=== PATIENT | female | born 2000 | race Caucasian/White ===

== ENCOUNTER 2023-11-15 10:30 | Outpatient (RCR) | payer OTHER, SELFPAY ==
[2023-11-10 14:01] VITALS: BP 106/66; PULSE 75; RESP 20; TEMP 36.2; BMI 24.2
--- NOTE | 2023-11-10 16:06 | PCM.WC.HP ---
History of Present Illness Date of Service: 11/10/23 Chief Complaint: Burn ulcer lower left lateral back History of Wound: 23 year old female who had a cardiac ablation for SVT on 10/15/23 in [place]. She was told that the grounding wire was not adhered completely during her procedure and she initially developed a blister. The blister turned into a second degree burn. She has been placing antibiotic ointment to the area and covering it with a band aid. She was referred to the wound healing center for further evaluation and treatment. She denies any other health issues besides ADHD and the SVT she has experienced. Today she denies fevers, chills, nausea or vomiting. She comes in for further evaluation of her non healing burn/ulcer. Progress of Wound: Left lower lateral back ulcer is beefy pink in the subcutaneous tissue. It is tender to palpation. Surrounding skin is clear. No clinical evidence of infection. [facility] Home Medications bacitracin zinc 500 unit/gram topical ointment topical BID 11/10/23 [History Last Taken Unknown] fluoxetine 40 mg capsule 40 mg PO 11/10/23 [History Last Taken Unknown] hydroxyzine HCl 10 mg tablet 10 - 20 mg PO PRN PRN anxiety 11/10/23 [History Last Taken Unknown] hydroxyzine HCl 25 mg tablet 25 - 50 mg PO QHS PRN PRN insomnia 11/10/23 [History Last Taken Unknown] methylphenidate HCl 20 mg chewable tablet immed and exten.release 24 hr (QuilliChew ER) 20 mg PO DAILY 11/10/23 [History Last Taken Unknown] methylphenidate HCl 20 mg tablet 20 mg PO DAILY 11/10/23 [History Last Taken Unknown] methylphenidate HCl 30 mg chewable tablet immed and exten.release 24 hr (QuilliChew ER) 30 mg PO 11/10/23 [History Last Taken Unknown] metoprolol succinate 25 mg tablet,extended release 24 hr 25 mg PO DAILY 11/10/23 [History Last Taken Unknown] silver sulfadiazine 1 % topical cream (SSD) applic topical BID 11/10/23 [History Last Taken Unknown] Allergy/AdvReac Type Severity Reaction Status Date / Time No Known Allergies Allergy Verified 11/10/23 14:18 Social History Smoking Status: Heavy Smoker (>10/day) ROS Constitutional Constitutional: Denies fever(s) or headache(s) Eyes Eyes: Reports none ENT HEENT: Reports none Cardiovascular Cardiovascular: Reports other; Denies chest pain, dyspnea or rapid heart rate Respiratory/Chest Respiratory/Chest: Reports none Gastrointestinal Gastrointestinal: Reports none Musculoskeletal Musculoskeletal: Reports none Integumentary Integumentary: Reports skin ulcer Neurologic Neurologic: Reports none Psychiatric Psychiatric: Reports none Endocrine Endocrinology: Reports none Vital Signs Vital Signs Vital Signs: 11/10/23 14:01 Temperature 97.2 F L Temperature Source Temporal Pulse Rate 75 Respiratory Rate 20 H Blood Pressure 106/66 Blood Pressure Mean 79 Blood Pressure Source Monitor Weight Weight: 145 lb 10.724 oz Body Mass Index (BMI) 24.2 Physical Exam Const alert, oriented x3, no apparent distress and average body habitus General Appearance: cooperative HEENT normocephalic Head and Scalp: atraumatic Eyes General Eye: normal appearance of both eyes Neck full ROM Resp normal respiratory effort, normal air movement and clear to auscultation bilaterally Effort and Inspection: able to speak in complete sentences Cardio regular rate, regular rhythm and S1 normal heart sound GI soft to palpation and non-tender Back/Spine normal ROM Extremity full ROM and normal capillary refill Skin Wound Narrative: Left lower lateral back ulcer pink, into the subcutaneous tissue. Clinically does not look infected. Ema wound is clear. Neuro oriented x3, CN's II-XII intact bilaterally and moves all extremities Psych mental status grossly normal, thought process normal, cooperative and affect normal Debridement Note Debridement Note Wound debrided: lower lateral back ulcer Laterality: Left Wound Grade/Stage: Stage II (2nd degree burn) Type of Debridement: Excisional debridement Anesthesia Used: 5% Lidocaine Gel Depth: Down to and including healthy tissue and in the subcutaneous layer Percentage of wound debrided: 100 Instrument Used: 5mm curette Tissue Removed: Non viable tissue and slough Severity: Limited To Skin Breakdown Amount of bleeding with debridement: Mild Bleeding Controlled with: Compression and gauze Patient tolerated procedure: Patient tolerated procedure well Post-Debridement Measurements and Additional Note: Post-Debridement Measurements/Treatment WC - Nurse 1 - General Ulcer Assessment Start: 11/10/23 14:00 Freq: Status: Active Protocol: JUNIOR Activity Type Activity Date Activity User E-sign Co-sign Detail Recorded Client Recorded Date Recorded By Document 11/10/23 14:01 DL Desktop 11/10/23 14:14 DL 11/10/23 14:01 WC - Today's Visit Information Type of service Initial Visit Arrival Mode Ambulatory Transfer Assistance None Patient Identification Verified (Name & Yes ) Patient Requires Transmission-Based No Precautions Height and Weight Height 5 ft 5 in Weight 145 lb 10.724 oz Weight in Pounds 145.7 lbs Weight Measurement Method Estimated by Patient Body Mass Index (BMI) 24.2 BMI Classification Normal BSA - Michi 1.73 Vital Signs Temperature (97.8 F-99.1 F) 97.2 F L Temperature Source Temporal Pulse Rate (60-100) 75 Pulse Location Monitor Respiratory Rate (12-18) 20 H Respiratory rate source Observation Blood Pressure (90/60-120/80) 106/66 Blood Pressure Mean (mm Hg) 79 Source Monitor History Since Last Visit- (Skip if this is Patient's initial visit) Have you changed medications since your No last visit? Any new allergies or adverse reactions No Had a fall/change in ADL's that may No increase risk of falls Signs or symptoms of abuse and/or No neglect since last visit Have you been in the hospital since your No last visit? Has dressing in place as prescribed Yes Has compression in place as prescribed N/A Has offloadiing in place as prescribed Yes Experienced any changes in pain level or No management Pain Scale: 0-10 Numeric Is Patient Pain Free? Yes Communication Assessment Preferred language [place] Radiology Transporter Required No Able to Read Yes Able to Write No Right Hearing Abillity Normal Left Hearing Abillity Normal Visual Assistive Devices None Teaching Assessment Preferences Verbal,Written, Demonstration Barriers to Learning None Readiness To Learn Good Willingness to Engage in Self Management Med Activies Readiness to Engage in Self Management Med Activities Anxiety Level Calm Cooperation Cooperative Perception Coherent Interest in Health Problem Asks Questions Education Importance Acknowledges Need Does Patient Smoke tobacco or other No substances Smoking Status Heavy Smoker (> 10/day) Functional Assessment Recent Decline in Ability to Perform Denies Any Declines Culture/Pentecostalism/Disbursing Agent Cultural/Pentecostalism Needs that may affect No Treatment Plan Would you allow our hospital rn support services to No meet you for the purpose of spiritual/ emotional support? Disbursing Agent to contact place of hinduism No Teaching: Wound Center *Welcome to the Wound Center -Person Taught Patient WC - Nurse 1 - General Ulcer Measurement Start: 11/10/23 14:00 Freq: Status: Active Protocol: Activity Type Activity Date Activity User E-sign Co-sign Detail Recorded Client Recorded Date Recorded By Document 11/10/23 14:01 DL Desktop 11/10/23 14:14 DL 11/10/23 14:01 Wound Center Nurse 1 #1 L Flank -Current Size (cm) - Length 1 -Current Size (cm) - Width 1.3 -Current Size (cm) - Depth 0.1 -Total Square Cm 1.3 -Photo Taken Yes -Exudate Amt Medium -Exudate Type Serosanguineous -Wound Margin Distinct, Outline Attached -Granulation Amt Small (1-33%) -Granulation Quality [place] -Necrosis Amt Small (1-33%) -Necrotic Tissue Type Adherent Slough -Structure Exposed N/A -Texture (Ema-wound Skin Appearance) Scarring -Moisture (Ema-wound Skin Appearance) No Abnormality -Color (Ema-wound Skin Appearance) No Abnormality -Temperature (Ema-wound Skin No Abnormality Appearance) (Pt Warm) -Tenderness on Palpation (Ema-wound No Skin Appearance) -Ulcer Cleansing Rinsed/ Irrigated with Saline -Foul Odor after Cleansing No -Anesthetic Used 5% Lidocaine Gel WC - Nurse 2 - General Ulcer CM Notes Start: 11/10/23 14:00 Freq: Status: Active Protocol: Activity Type Activity Date Activity User E-sign Co-sign Detail Recorded Client Recorded Date Recorded By Document 11/10/23 14:33 MW Desktop 11/10/23 14:40 MW 11/10/23 14:33 Wound Center Nurse 2 -Time 14:34 -Correct Patient Yes -Correct Side, Site, Position Yes -Correct Procedure Yes -Procedure Performed Yes -Type of Procedure Debridement -Clinical Debridement Subcutaneous -Tissue Removed Subcutaneous -Post Debridement (cm) - Length 1.3 -Post Debridement (cm) - Width 1.3 -Post Debridement (cm) - Depth 0.2 -Total Square (Post) (cm) 1.69 -Area of Debridement (cm) - Length 1.3 -Area of Debridement (cm) - Width 1.3 -Total Square (Area) (cm) 1.69 -Tunneling No -Undermining/Tunneling No -Circular Undermining No -Wound/Ulcer Outcome Not Healed -Ulcer Cleansing Rinsed/ Irrigated with Saline -Foul Odor after Cleansing No -Bioengineered Tissue No -Bleeding Controlled with Pressure -Treatment Response Procedure Tolerated Well -Offloading No -Debridement - Subq, 1st 20sq cm Yes Pain Scale: 0-10 Numeric Is Patient Pain Free? Yes WC - Nurse 3 - General Ulcer D/C NN Start: 11/10/23 14:00 Freq: Status: Active Protocol: Activity Type Activity Date Activity User E-sign Co-sign Detail Recorded Client Recorded Date Recorded By Document 11/10/23 15:05 DL [id number] 11/10/23 15:06 DL 11/10/23 15:05 Wound Care Center Nurse 3 #1 L Flank -Ulcer Cleansing Rinsed/ Irrigated with Saline -Foul Odor after Cleansing No -Primary Dressing Applied Promogran Patricia Matter -Primary Dressing Covered/Secured with Dry Gauze, Secured with Tape -Promogran Patricia Matter 1 Treatment Response Procedure Tolerated Well Pain Scale: 0-10 Numeric Is Patient Pain Free? Yes WC - Visit Discharge Discharge Condition Stable Ambulatory Status Ambulatory Transportation Private Auto Charges/Coding Visit Charges Office Visits / Consults: 72314 OV L3 New 30min (25 modifier) Procedures Integumentary 111xxx-113xx: [id number] Renetta subq tissue 20 sq cm/< Assessment/Plan Assessment/Plan (1) Decubitus ulcer of back, stage 2: CODE(S): L89.102 - Pressure ulcer of unspecified part of back, stage 2 (2) Second degree burn of back: CODE(S): T21.24XA - Burn of second degree of lower back, initial encounter QUALIFIERS: Encounter type: initial encounter Qualified Code(s): T21.24XA - Burn of second degree of lower back, initial encounter PLAN: Plan Patient evaluated at the wound healing center. Wound care - Moistened Patricia covered with gauze daily. Wash wound with soap and water at the time of the dressing change. May shower before doing the dressing change. Reviewed records from . Follow up one week Greater than 35 minutes spent with patient, obtaining history/physical/educating. Reviewed records from , and documenting.
[2023-11-15 10:41] VITALS: BP 113/70; PULSE 94; RESP 16; TEMP 36.2; BMI 24.2
--- NOTE | 2023-11-15 12:27 | PCM.WC.PN ---
History of Present Illness Date of Service: 11/15/23 Chief Complaint: Burn ulcer lower left lateral back History of Wound: 23 year old female who had a cardiac ablation for SVT on 10/15/23 in [place]. She was told that the grounding wire was not adhered completely during her procedure and she initially developed a blister. The blister turned into a second degree burn. She has been placing antibiotic ointment to the area and covering it with a band aid. She was referred to the wound healing center for further evaluation and treatment. She denies any other health issues besides ADHD and the SVT she has experienced. Today she denies fevers, chills, nausea or vomiting. She comes in for further evaluation of her non healing burn/ulcer. Progress of Wound: Left lower lateral back ulcer is beefy pink in the subcutaneous tissue. It is much smaller in size. She denies any issues with the daily moistened Patricia dressing changes. Objective Data Objective Data Vital Signs: Vital Signs Temp Pulse Resp BP 97.2 F L 94 16 113/70 11/15/23 10:41 11/15/23 10:41 11/15/23 10:41 11/15/23 10:41 Weight: 145 lb 10.724 oz Body Mass Index (BMI) 24.2 Charges/Coding Procedures Integumentary 111xxx-113xx: [id number] Renetta subq tissue 20 sq cm/< Debridement Note Debridement Note Wound debrided: lower lateral back ulcer Laterality: Left Wound Grade/Stage: Stage II (2nd degree burn) Type of Debridement: Excisional debridement Anesthesia Used: 5% Lidocaine Gel Depth: Down to and including healthy tissue and in the subcutaneous layer Percentage of wound debrided: 100 Instrument Used: 3mm curette Tissue Removed: Non viable tissue and slough Severity: Limited To Skin Breakdown Amount of bleeding with debridement: Mild Bleeding Controlled with: Compression and gauze Patient tolerated procedure: Patient tolerated procedure well Post-Debridement Measurements and Additional Note: Post-Debridement Measurements/Treatment CATHI - Nurse 1 - General Ulcer Assessment Start: 11/10/23 14:00 Freq: Status: Active Protocol: JUNIOR Activity Type Activity Date Activity User E-sign Co-sign Detail Recorded Client Recorded Date Recorded By Document 11/10/23 14:01 DL Desktop 11/10/23 14:14 DL Document 11/15/23 10:41 Laptop 11/15/23 10:44 JF 11/10/23 11/15/23 14:01 10:41 WC - Today's Visit Information Type of service Initial Visit Follow-up Visit (Physician/A OPERATOR ) Arrival Mode Ambulatory Ambulatory Transfer Assistance None Patient Identification Verified (Name & Yes Yes ) Patient Requires Transmission-Based No No Precautions Height and Weight Height 5 ft 5 in Weight 145 lb 10.724 oz Weight in Pounds 145.7 lbs Weight Measurement Method Estimated by Patient Body Mass Index (BMI) 24.2 24.2 BMI Classification Normal Normal BSA - Michi 1.73 Vital Signs Temperature (97.8 F-99.1 F) 97.2 F L 97.2 F L Temperature Source Temporal Temporal Pulse Rate (60-100) 75 94 Pulse Location Monitor Monitor Respiratory Rate (12-18) 20 H 16 Respiratory rate source Observation Observation Blood Pressure (90/60-120/80) 106/66 113/70 Blood Pressure Mean (mm Hg) 79 84 Source Monitor Monitor Position Semi-Fowlers Blood Pressure Location Left Arm History Since Last Visit- (Skip if this is Patient's initial visit) Have you changed medications since your No No last visit? Any new allergies or adverse reactions No No Had a fall/change in ADL's that may No No increase risk of falls Signs or symptoms of abuse and/or No No neglect since last visit Have you been in the hospital since your No No last visit? Has dressing in place as prescribed Yes Yes Has compression in place as prescribed N/A N/A Has offloadiing in place as prescribed Yes N/A Experienced any changes in pain level or No No management Left Footwear Regular Shoe Right Footwear Regular Shoe Pain Scale: 0-10 Numeric Is Patient Pain Free? Yes Yes Communication Assessment Preferred language [place] Global Marketing Operations Manager Required No Able to Read Yes Able to Write No Right Hearing Abillity Normal Left Hearing Abillity Normal Visual Assistive Devices None Teaching Assessment Preferences Verbal,Written, Demonstration Barriers to Learning None Readiness To Learn Good Willingness to Engage in Self Management Med Activies Readiness to Engage in Self Management Med Activities Anxiety Level Calm Cooperation Cooperative Perception Coherent Interest in Health Problem Asks Questions Education Importance Acknowledges Need Does Patient Smoke tobacco or other No substances Smoking Status Heavy Smoker (> 10/day) Functional Assessment Recent Decline in Ability to Perform Denies Any Declines Culture/Islam/Brand Ambassador Promotional Model Cultural/Islam Needs that may affect No Treatment Plan Would you allow our hospital hip hop performers to No meet you for the purpose of spiritual/ emotional support? Brand Ambassador Promotional Model to contact place of quaker No Teaching: Wound Center *Welcome to the Wound Center -Person Taught Patient CATHI - Nurse 1 - General Ulcer Measurement Start: 11/10/23 14:00 Freq: Status: Active Protocol: Activity Type Activity Date Activity User E-sign Co-sign Detail Recorded Client Recorded Date Recorded By Document 11/10/23 14:01 DL Desktop 11/10/23 14:14 DL Document 11/15/23 10:41 JF Laptop 11/15/23 10:44 JF 11/10/23 11/15/23 14:01 10:41 Wound Center Nurse 1 #1 L Flank -Combined with other wound No -Current Size (cm) - Length 1 0.4 -Current Size (cm) - Width 1.3 0.7 -Current Size (cm) - Depth 0.1 0.1 -Total Square Cm 1.3 0.28 -Photo Taken Yes No -Epithelialization Medium 34-66% -Tunneling No -Undermining/Tunneling No -Circular Undermining No -Exudate Amt Medium Small -Exudate Type Serosanguineous Serosanguineous -Wound Margin Distinct, Flat & Intact Outline Attached -Granulation Amt Small (1-33%) Medium (34-66%) -Granulation Quality [place] -Slough/Fibrin Yes -Necrosis Amt Small (1-33%) Small (1-33%) -Necrotic Tissue Type Adherent Slough Adherent Slough -Structure Exposed N/A N/A -Texture (Ema-wound Skin Appearance) Scarring Assessed -Moisture (Ema-wound Skin Appearance) No Abnormality Assessed,Dry/ Scaly -Color (Ema-wound Skin Appearance) No Abnormality Assessed -Temperature (Ema-wound Skin No Abnormality No Abnormality Appearance) (Pt Warm) (Pt Warm) -Tenderness on Palpation (Ema-wound No No Skin Appearance) -Ulcer Cleansing Rinsed/ Rinsed/ Irrigated with Irrigated with Saline Saline -Foul Odor after Cleansing No No -Anesthetic Used 5% Lidocaine 4% Lidocaine Gel Solution Lower Limb Edema Present NA CATHI - Nurse 2 - General Ulcer CM Notes Start: 11/10/23 14:00 Freq: Status: Active Protocol: Activity Type Activity Date Activity User E-sign Co-sign Detail Recorded Client Recorded Date Recorded By Document 11/10/23 14:33 MW Desktop 11/10/23 14:40 Document 11/15/23 10:44 Laptop 11/15/23 10:48 11/10/23 11/15/23 14:33 10:44 Wound Center Nurse 2 #1 L Flank -Time 14:34 10:47 -Correct Patient Yes Yes -Correct Side, Site, Position Yes Yes -Correct Procedure Yes Yes -Procedure Performed Yes Yes -Type of Procedure Debridement Debridement -Clinical Debridement Subcutaneous Subcutaneous -Tissue Removed Subcutaneous Subcutaneous -Post Debridement (cm) - Length 1.3 0.4 -Post Debridement (cm) - Width 1.3 0.7 -Post Debridement (cm) - Depth 0.2 0.1 -Total Square (Post) (cm) 1.69 0.28 -Area of Debridement (cm) - Length 1.3 0.4 -Area of Debridement (cm) - Width 1.3 0.7 -Total Square (Area) (cm) 1.69 0.28 -Tunneling No -Undermining/Tunneling No No -Circular Undermining No No -Wound/Ulcer Outcome Not Healed Not Healed -Ulcer Cleansing Rinsed/ Rinsed/ Irrigated with Irrigated with Saline Saline -Foul Odor after Cleansing No No -Bioengineered Tissue No No -Bleeding Controlled with Pressure Pressure -Treatment Response Procedure Procedure Tolerated Well Tolerated Well -Offloading No No -Debridement - Subq, 1st 20sq cm Yes Yes Pain Scale: 0-10 Numeric Is Patient Pain Free? Yes Yes WC - Nurse 3 - General Ulcer D/C NN Start: 11/10/23 14:00 Freq: Status: Active Protocol: Activity Type Activity Date Activity User E-sign Co-sign Detail Recorded Client Recorded Date Recorded By Document 11/10/23 15:05 DL [id number] 11/10/23 15:06 Document 11/15/23 10:48 Laptop 11/15/23 10:48 11/10/23 11/15/23 15:05 10:48 Wound Care Center Nurse 3 #1 L Flank -Ulcer Cleansing Rinsed/ Rinsed/ Irrigated with Irrigated with Saline Saline -Foul Odor after Cleansing No No -Primary Dressing Applied Promogran Promogran Patricia Matter Patricia Matter -Primary Dressing Covered/Secured with Dry Gauze, Dry Gauze, Secured with Secured with Tape Tape -Promogran Patricia Matter 1 1 Treatment Response Procedure Tolerated Well Pain Scale: 0-10 Numeric Is Patient Pain Free? Yes Yes WC - Visit Discharge Discharge Condition Stable Stable Ambulatory Status Ambulatory Ambulatory Transportation Private Auto Private Auto Medication Reconcilliation completed & Yes provided to patient/care provider Clinical Summary of Care Provided Yes Assessment/Plan Assessment/Plan (1) Decubitus ulcer of back, stage 2: CODE(S): L89.102 - Pressure ulcer of unspecified part of back, stage 2 (2) Second degree burn of back: CODE(S): T21.24XA - Burn of second degree of lower back, initial encounter QUALIFIERS: Encounter type: initial encounter Qualified Code(s): T21.24XA - Burn of second degree of lower back, initial encounter PLAN: Plan Patient evaluated at the wound healing center. Wound care - Moistened Patricia covered with gauze daily. Wash wound with soap and water at the time of the dressing change. May shower before doing the dressing change. Follow up two weeks, since she starts a new job at [employer] and is not sure what her schedule is for next week.
== END 2023-11-16 23:59 | disposition home or self-care (01) ==
LOC: WC 10:30
PROVIDERS: Visit Provider Surgery
DX: L98.422 Non-pressure chronic ulcer of back with fat layer exposed (principal); T21.2 Burn of second degree of trunk; F17.200 Nicotine dependence, unspecified, uncomplicated; X19.XXXS Contact with other heat and hot substances, sequela; I47.10 Supraventricular tachycardia, unspecified; Z79.899 Other long term (current) drug therapy
CPT/HCPCS: 11042; 99203; G0463

== ENCOUNTER 2023-11-29 11:26 | Outpatient (RCR) | payer OTHER, SELFPAY ==
[2023-11-17 00:33] VITALS: BP 113/70; PULSE 94; RESP 16; TEMP 36.2; BMI 24.2
[2023-11-29 11:39] VITALS: BP 113/67; PULSE 73; RESP 18; TEMP 36.5; BMI 24.2
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
== END 2023-12-17 23:59 | disposition home or self-care (01) ==
LOC: WC 11:26
PROVIDERS: Visit Provider Surgery
DX: Z09 Encounter for follow-up examination after completed treatment for conditions other than malignant neoplasm (principal); T21.2 Burn of second degree of trunk; W86.8XXS Exposure to other electric current, sequela; Z79.899 Other long term (current) drug therapy
CPT/HCPCS: 99212; G0463